=== PATIENT | female | born 1960 | race Caucasian/White ===

== ENCOUNTER 2019-05-02 11:25 | Emergency (ER) | payer BC ==
[2019-05-02 11:49] LABS: #Basophils 0.1 thou/uL (0.0-0.2); #Lymphocytes 2.3 thou/uL (1.20-3.40); #Monocytes 0.4 thou/uL (0.11-0.59); #Neutrophils 2.2 thou/uL (1.40-6.50); %Basophils 1.6 % (0.0-1.0); %Eosinophils 0.4 % (0.0-10.0); %Lymphocytes 45.9 % (21.0-51.0); %Monocytes 8.1 % (0.0-10.0); Hemoglobin 14.9 g/dL (12.0-16.0); Mean Corpuscular Hemoglobin 29.2 pg (27.0-31.0); Mean Corpuscular Volume 88.5 fL (78.0-98.0); Mean Platelet Volume 8.7 fL (7.4-10.4); Platelet Count 137 thou/uL (130-400); RBC Distribution Width 12.6 % (11.5-14.5); Red Blood Cell (RBC) Count 5.11 mill/uL (4.20-5.40)
[2019-05-02 11:54] LABS: INR-International Normal Ratio 0.9; PTT 27.7 SEC (22.9-36.1); Prothrombin Time 12.2 SEC (12.0-14.7)
[2019-05-02 12:14] LABS: ALT (SGPT) 26 U/L (8-55); AST (SGOT) 26 U/L (5-34); Albumin 4.1 g/dL (3.5-5.0); Alkaline Phosphatase 77 U/L (40-110); Anion Gap 11 mmol/L (10-20); BUN (Urea Nitrogen) 9 mg/dL (9.8-20.1); Bilirubin, Total 0.3 mg/dL (0.2-1.2); Calc. Creatinine Clearance 0 mL/min (70-130); Calcium 8.8 mg/dL (7.8-10.44); Carbon Dioxide 26 mmol/L (22-29); Chloride 102 mmol/L (98-107); Estimated GFR-MDRD 66; Glucose 97 mg/dL (70-105); Potassium 3.4 mmol/L (3.5-5.1); Protein, Total 7.1 g/dL (6.0-8.3); Sodium 136 mmol/L (136-145)
[2019-05-02] MEDS ORDERED: Iopamidol-370 76% 500 ML 1 ML ONE (13:56)
[2019-05-02] MEDS ORDERED: HYDROcodone/Acetaminophen 5/325 mg Tablet ONE (15:41)
--- NOTE | 2019-05-02 16:10 | CT ---
CT Abdomen Pelvis W Con History: Left lower quadrant pain. Rectal bleeding Comparison: CT abdomen and pelvis 2009 Findings: Lung bases are clear. No pericardial effusion. Liver, gallbladder, spleen are unremarkable. Small sub-5 mm hypodensity posterior right lobe of the l iver is similar. Small hypodensity hepatic segment 2 2 small fully characterize although statistically likely a cyst. Normal proximal small bowel rotation. Adrenal glands are unremarkable. No hydroureteronephrosis. Abnormal circumferential wall thickening of the sigmoid colon with some low-grade hyperemia of the me sentery. The appendix is visualized and is normal. The aortoiliac contour is normal. No acute osseous abnormality. Impression: 1. Circumferential wall thickening with mild mesenteric hyperemia of the sigmoid colon suggesting col itis. This could be a source of patient's rectal bleeding. 2. Intact appendix. 3. No other acute inflammatory process within the abdomen or pelvis.
== END 2019-05-02 17:28 | disposition home or self-care (01) ==
LOC: ERS 11:25
DX: K52.9 Noninfective gastroenteritis and colitis, unspecified (principal); K92.2 Gastrointestinal hemorrhage, unspecified; G43.909 Migraine, unspecified, not intractable, without status migrainosus; F17.210 Nicotine dependence, cigarettes, uncomplicated
CPT/HCPCS: 36415; 74177; 80053; 85025; 85610; 85730; 86850; 86870; 86900; 86901; 86905; 86922; 96360; Q9967

== ENCOUNTER 2021-04-13 12:26 | Outpatient (CLI) | payer OTHER | END 2021-04-13 12:27 | disposition home or self-care (01) | LOC: MRI 12:26 | PROVIDERS: ATTEND Family Medicine | DX: M25.512 Pain in left shoulder (principal); R20.2 Paresthesia of skin ==